=== PATIENT | male | born 1970 | race Caucasian/White ===

== ENCOUNTER 2019-12-19 03:59 | Emergency (ER) | payer SELFPAY ==
[2019-12-19] MEDS ORDERED: Aspirin Chewable 81 MG TAB ONE (04:28)
[2019-12-19] MEDS ORDERED: Insulin Regular 300 UNITS/3 ML VIAL ONE (04:29)
[2019-12-19 04:35] LABS: #Basophils 0.2 thou/uL (0.0-0.2); #Eosinphils 0.4 thou/uL (0.0-0.7); #Lymphocytes 4.7 thou/uL (1.20-3.40); #Monocytes 1.1 thou/uL (0.11-0.59); #Neutrophils 7.5 thou/uL (1.40-6.50); %Basophils 1.5 % (0.0-1.0); %Eosinophils 2.6 % (0.0-10.0); %Lymphocytes 34.1 % (21.0-51.0); %Monocytes 7.7 % (0.0-10.0); Hemoglobin 17.9 g/dL (14.0-18.0); Mean Corpuscular HGB CONC 32.6 g/dL (32.0-36.0); Mean Corpuscular Hemoglobin 31.1 pg (27.0-31.0); Mean Corpuscular Volume 95.5 fL (78.0-98.0); Mean Platelet Volume 11.4 fL (7.4-10.4); Platelet Count 166 thou/uL (130-400); RBC Distribution Width 12.2 % (11.5-14.5); Red Blood Cell (RBC) Count 5.76 mill/uL (4.70-6.10); White Blood Cell (WBC) Count 13.9 thou/uL (4.8-10.8)
[2019-12-19 04:49] LABS: ALT (SGPT) 64 U/L (8-55); AST (SGOT) 27 U/L (5-34); Albumin 4.4 g/dL (3.5-5.0); Alkaline Phosphatase 128 U/L (40-110); Anion Gap 16 mmol/L (10-20); BUN (Urea Nitrogen) 19 mg/dL (8.9-20.6); Bilirubin, Total 0.3 mg/dL (0.2-1.2); Calc. Creatinine Clearance 0 mL/min (70-130); Calcium 9.6 mg/dL (7.8-10.44); Carbon Dioxide 21 mmol/L (22-29); Chloride 102 mmol/L (98-107); Estimated GFR-MDRD 79; Globulin 3.1 g/dL (2.4-3.5); Glucose 293 mg/dL (70-105); Potassium 4.1 mmol/L (3.5-5.1); Protein, Total 7.5 g/dL (6.0-8.3); Sodium 135 mmol/L (136-145)
[2019-12-19] MEDS ORDERED: Metoprolol Tartrate 5 MG/5 ML VIAL ONE (05:07)
[2019-12-19 05:11] LABS: CKMB 5.6 ng/mL (0-6.6)
--- NOTE | 2019-12-19 11:23 | RAD ---
PORTABLE CHEST: Date: 12/19/2019 An AP portable film at 0430 hours is compared with an 08/05/2018 study. The heart is normal in size and the lungs are clear. No infiltrate or effusion seen. There is no vasc ular congestion or edema. The left pulmonary artery is a little more prominent than the right, but I believe this is partially due to him being turned slightly. IMPRESSION: No acute thoracic findings. POS: HOME
== END 2019-12-19 05:29 | disposition short-term general hospital (02) ==
LOC: BURERS 03:59
DX: I24.9 Acute ischemic heart disease, unspecified (principal); E11.65 Type 2 diabetes mellitus with hyperglycemia; I10 Essential (primary) hypertension; E78.5 Hyperlipidemia, unspecified; E78.00 Pure hypercholesterolemia, unspecified; F17.210 Nicotine dependence, cigarettes, uncomplicated; Z79.84 Long term (current) use of oral hypoglycemic drugs; Z71.6 Tobacco abuse counseling
CPT/HCPCS: 36416; 71045; 80053; 82553; 83880; 84484; 85025; 85379; 93005; 94760; 96361; 96374; 96375; 99406; J1815